=== PATIENT | male | born 1945 | race Caucasian/White ===

== ENCOUNTER 2016-11-02 14:02 | Emergency (ER) | payer OTHER, MEDICAID ==
[~2016-11-02] VITALS: Ht 162.6 cm; Wt 68.0 kg
[~2016-11-02 14:02] MED LIST: CATAPRES0.1 MG ORAL; CEPHALEXIN500 MG ORAL; DOXEPIN HCL25 MG ORAL; DOXYCYCLINE MO100 MG ORAL; IBUPROFEN800 MG ORAL; MECLIZINE HCL25 MG ORAL
[2016-11-02] MEDS ORDERED: NKM (14:14)
[2016-11-02] MEDS ORDERED: Meclizine 25mg tab ORAL PRN (14:45)
--- NOTE | 2016-11-02 14:55 | Emergency Room Report ---
History of Present Illness General Chief Complaint: Dizziness Source: Patient Present Illness HPI The patient presents with 3 days of dizziness. It's when he stands up. He feels a little also when sitting up. He has nausea associated with that but has not any vomiting. He denies any chest pain or palpitations. No headache. The patient associates this with recent surgery on his right foot. Is not taking any antibiotics or any other pain medication for that. He has been washing himself by lying down in a bath and water might have gotten into his ears. He moistens Qtips in his mouth before cleaning his ears. Denies any ringing in his ears. Denies any fevers or chills. Also there is no weakness in his body aside from chronic weakness in his right hand from a prior trauma. The patient says his equilibrium is off. There is no change in his vision. Ears no change in sensation. This never happened to him before (although there is a prior Rx for antivert). Not on blood thinners, oncologic treatment, headache. No prior strokes. Allergies: Coded Allergies: No Known Allergies (Unverified , 07/10/13) Patient History Past Medical History: see triage record Past Surgical History: other - R foot surgery and R forearm surgery/trauma Social History: Denies: alcohol use, drug use, smoking Social History Narrative lives at home with cats - here with friend Reviewed Nursing Documentation: PMH: Agreed, PSxH: Agreed Nursing Documentation-PMH Past Medical History: No History, Except For Review of Systems All Other Systems: negative except mentioned in HPI Physical Exam Vital Signs Date Time Temp Pulse Resp B/P Pulse Ox O2 Delivery O2 Flow Rate FiO2 11/02/16 14:08 98.1 67 16 145/77 99 Room Air Sp02 EP Interpretation: reviewed, normal General Appearance: well appearing, no apparent distress, GCS 15 Head: normocephalic Eyes: bilateral eye EOMI, bilateral eye PERRL, bilateral eye normal inspection ENT: moist mucus membranes - plates Neck: supple Respiratory: chest non-tender, lungs clear, normal breath sounds Cardiovascular #1: regular rate, rhythm Cardiovascular #2: 2+ radial (R) Gastrointestinal: normal inspection, normal bowel sounds, non tender, no mass, non-distended Musculoskeletal: digits/nails normal, gait/station normal, normal range of motion, other - atrophy R hand (ulnar nerve), foot appliance Neurologic: alert, oriented x3, professional development instructor III-XII nml as tested - possible minimal lateral nystagmus, motor strength/tone normal, DTRs symmetric, sensory intact, cerebellar normal, speech normal Psychiatric: mood/affect normal Skin: normal inspection, warm/dry Medical Decision Making Diagnostic Impression: Primary Impression: Vertigo ER Course Patient presents with dizziness and nausea for 3 days. It is mainly when he is standing up. Differential includes cerebellar infarct, dehydration, labyrinthitis, vertigo amongst others. Evaluation with EKG, chest x-ray, labs and also CT of head is undertaken. In addition the patient will be treated with Zofran and Antivert. Will also check his orthostatic vital signs. EKG and CXR unremarkable. Labs with normal H/H and WBC. Patient improved with treatment here. Able to sit, walk and stand without difficulty. Here with friend. Patient stable for outpatient observation and treatment. Laboratory Tests Test 11/02/16 14:52 White Blood Count 6.9 K/UL (4.8-10.8) Red Blood Count 4.72 M/UL (4.70-6.10) Hemoglobin 14.4 G/DL (14.2-18.0) Hematocrit 44.3 % (42.0-52.0) Mean Corpuscular Volume 94 FL (80-99) Mean Corpuscular Hemoglobin 30.5 PG (27.0-31.0) Mean Corpuscular Hemoglobin Concent 32.5 G/DL (32.0-36.0) Red Cell Distribution Width 12.5 % (11.6-14.8) Platelet Count 139 K/UL (150-450) L Mean Platelet Volume 10.0 FL (6.5-10.1) Neutrophils (%) (Auto) 71.9 % (45.0-75.0) Lymphocytes (%) (Auto) 19.2 % (20.0-45.0) L Monocytes (%) (Auto) 7.0 % (1.0-10.0) Eosinophils (%) (Auto) 0.5 % (0.0-3.0) Basophils (%) (Auto) 1.5 % (0.0-2.0) Prothrombin Time 10.2 SEC (9.30-11.50) Prothrombin Time INR 1.0 (0.9-1.1) PTT 26 SEC (23-33) Sodium Level 141 mEQ/L (135-145) Potassium Level 5.0 mEQ/L (3.4-4.9) H Chloride Level 100 mEQ/L (98-107) Carbon Dioxide Level 30 mEQ/L (20-30) Anion Gap 11 (5-15) Blood Urea Nitrogen 10 mg/dL (7-23) Creatinine 0.9 mg/dL (0.7-1.2) Estimate Glomerular Filtration Rate mL/min (>60) Glucose Level 107 mg/dL (74-106) H Calcium Level 9.9 mg/dL (8.6-10.2) Total Bilirubin 0.2 mg/dL (0.0-1.2) Aspartate Amino Transferase (AST) 42 U/L (5-40) H Alanine Aminotransferase (ALT) 49 U/L (3-41) H Alkaline Phosphatase 75 U/L (40-129) Total Creatine Kinase 525 U/L (38-174) H Troponin I < 0.30 ng/mL (<=0.30) Total Protein 7.6 g/dL (6.6-8.7) Albumin 4.3 g/dL (3.5-5.2) Globulin 3.3 g/dL Albumin/Globulin Ratio 1.3 (1.0-2.7) EKG Diagnostic Results Rate: normal Rhythm: NSR ST Segments: no acute changes Rhythm Strip Diag. Results EP Interpretation: yes Rhythm: NSR, no PVC's, no ectopy Chest X-Ray Diagnostic Results EP Interpretation: Yes Findings: no consolidation, no effusion, no pneumothorax, no acute cardiopulmonary disease Number of Views: 1 CT/MRI/US Diagnostic Results CT/MRI/US Diagnostic Results : Imaging Test Ordered: head Impression atrophy, no bleed, infract, masses. Nl bones. Last Vital Signs Date Time Temp Pulse Resp B/P Pulse Ox O2 Delivery O2 Flow Rate FiO2 11/02/16 17:11 98.0 78 15 147/84 100 Room Air 83 Status: improved Disposition: HOME, SELF-CARE Condition: Improved Scripts Ondansetron Odt* (ZOFRAN ODT*) 4 Mg Tab.rapdis 4 MG ORAL Q6H Y for Nausea & Vomiting, #6 TAB 1 Refill Prov: Jose Hamilton M.D. 11/02/16 Meclizine Hcl* (MECLIZINE*) 25 Mg Tablet 25 MG ORAL THREE TIMES A DAY Y for for dizziness, #10 TAB 1 Refill Prov: Jose Hamilton M.D. 11/02/16 Jose Hamilton M.D. Nov 02, 2016 14:55
[2016-11-02 14:59] VITALS: BP 174/83
[2016-11-02 15:20] LABS: BASOPHILS % (AUTO) 1.5 % (0.0-2.0); EOSINOPHILS % (AUTO) 0.5 % (0.0-3.0); LYMPHOCYTES % (AUTO) 19.2 % (20.0-45.0); MEAN CORPUSCULAR HEMOGLOBIN 30.5 PG (27.0-31.0); MEAN CORPUSCULAR HGB CONC 32.5 G/DL (32.0-36.0); MEAN CORPUSCULAR VOLUME 94 FL (80-99); NEUTROPHILS % (AUTO) 71.9 % (45.0-75.0); PLATELET COUNT 139 K/UL (150-450); RED BLOOD COUNT 4.72 M/UL (4.70-6.10); RED CELL DISTRIBUTION WIDTH 12.5 % (11.6-14.8); WHITE BLOOD COUNT 6.9 K/UL (4.8-10.8)
[2016-11-02 15:32] LABS: TROPONIN I < 0.30 ng/mL (<=0.30)
[2016-11-02 15:34] LABS: PROTHROMBIN TIME 10.2 SEC (9.30-11.50)
[2016-11-02 15:36] LABS: ALANINE AMINOTRANSFERASE 49 U/L (3-41); ALBUMIN/GLOBULIN RATIO 1.3 (1.0-2.7); ANION GAP 11 (5-15); ASPARTATE AMINO TRANSFERASE 42 U/L (5-40); CALCIUM 9.9 mg/dL (8.6-10.2); CARBON DIOXIDE 30 mEQ/L (20-30); CHLORIDE 100 mEQ/L (98-107); CREATININE 0.9 mg/dL (0.7-1.2); HEMOLYSIS 6; SODIUM 141 mEQ/L (135-145); TOTAL PROTEIN 7.6 g/dL (6.6-8.7)
[2016-11-02 16:24] VITALS: BP_SYST 136; BP_SYST 148; BP_SYST 157; BP_DIAS 110; BP_DIAS 112; BP_DIAS 139
[2016-11-02] MEDS ORDERED: ZOFRAN ODT4 MG ORAL (17:00)
[2016-11-02] MEDS ORDERED: MECLIZINE HCL25 MG ORAL (17:00)
[2016-11-02 17:01] VITALS: BP 147/84
[2016-11-02 17:11] VITALS: BP 147/84
--- NOTE | 2016-11-03 08:57 | Diagnostic Imaging Report ---
Clinical history: Chest pain Technique: Portable AP chest radiograph was obtained. Comparison: None Findings: Lung volumes are low. No focal consolidation is identified. There is no pneumonia or pulmonary edema. There is no pleural effusion or pneumothorax. The cardiac and mediastinal silhouettes are normal in appearance. The bony thorax is unremarkable. Impression: No acute cardiopulmonary process.
--- NOTE | 2016-11-03 09:13 | Diagnostic Imaging Report ---
CT Brain without Intravenous Contrast INDICATION: Dizziness. COMPARISON: None TECHNIQUE: Serial axial images were obtained from the the skull base through the vertex without intravenous contrast. Coronal reformats were obtained. Dose Estimate: Total DLP 1361 mGycm CTDIvol 70 mGy FINDINGS: Mild scattered periventricular and subcortical white matter hypodensities are nonspecific but may reflect the sequela of chronic microangiopathy. There is no evidence of acute intracranial hemorrhage or territorial infarct. The cortical sulci, ventricles and extra-axial CSF spaces appear prominent but likely normal for patient's age. There is no space occupying lesion, mass effect or midline shift. The visualized paranasal sinuses and mastoid air cells are clear. The osseous structures are unremarkable. IMPRESSION: 1. No acute intracranial hemorrhage, midline shift or mass effect. 2. Mild scattered white matter hypodensities are nonspecific but may reflect the sequela of chronic microangiopathy.
--- NOTE | 2016-11-04 08:34 | Cardiology Report ---
APPROVED REPORT EKG Measurement Heart [id number] Normal sinus rhythm Normal ECG
== END 2016-11-02 17:12 | disposition home or self-care (01) ==
LOC: EMR 14:58
DX: R42 Dizziness and giddiness (principal); R11.0 Nausea
CPT/HCPCS: 36415; 70450; 71010; 80053; 82550; 82962; 84484; 85025; 85610; 85730; 93005; 99284

== ENCOUNTER 2018-07-31 14:24 | Emergency (ER) | payer OTHER, MEDICAID ==
[~2018-07-31] VITALS: Ht 157.5 cm; Wt 68.9 kg
[~2018-07-31 14:24] MED LIST changes: +NKM; +ZOFRAN ODT4 MG ORAL
[2018-07-31 14:30] VITALS: BP 154/94
[2018-07-31] MEDS ORDERED: MECLIZINE HCL25 MG ORAL (15:11)
[2018-07-31] MEDS ORDERED: Meclizine 25mg tab ORAL ONE (15:15)
[2018-07-31 15:21] VITALS: BP 142/75
--- NOTE | 2018-07-31 16:36 | Emergency Room Report ---
History of Present Illness General Chief Complaint: Dizziness Source: Patient, Medical Record Present Illness HPI 73-year-old male presents ED for evaluation. Patient states he's been experiencing dizziness. Described as room spinning sensation. Worse with sudden position change. Denies any headache. Denies any nausea or vomiting. Denies any blurry vision. States that he's had these symptoms for the last month now. States he's had this in the past and was diagnosed with vertigo. States he was prescribed meclizine and states that helps with his symptoms. Denies any slurred speech or facial droop. Denies any arm or leg weakness. Denies any incontinence. No other aggravating relieving factors. Denies any other associated symptoms Allergies: Coded Allergies: No Known Allergies (Unverified , 07/31/18) Patient History Past Medical History: HTN Past Surgical History: none Pertinent Family History: none Social History: Denies: smoking, alcohol use, drug use Immunizations: UTD Reviewed Nursing Documentation: PMH: Agreed; PSxH: Agreed Nursing Documentation-PMH Past Medical History: No History, Except For Hx Hypertension: Yes Review of Systems All Other Systems: negative except mentioned in HPI Physical Exam Vital Signs Date Time Temp Pulse Resp B/P (MAP) Pulse Ox O2 Delivery O2 Flow Rate FiO2 07/31/18 14:30 98.6 81 15 154/94 96 Room Air Sp02 EP Interpretation: reviewed, normal General Appearance: no apparent distress, alert, GCS 15, non-toxic Head: normocephalic, atraumatic Eyes: bilateral eye normal inspection, bilateral eye PERRL ENT: hearing grossly normal, normal pharynx, no angioedema, normal voice Neck: full range of motion, supple/symm/no masses Respiratory: chest non-tender, lungs clear, normal breath sounds, speaking full sentences Cardiovascular #1: regular rate, rhythm, no edema Cardiovascular #2: 2+ carotid (R), 2+ carotid (L), 2+ radial (R), 2+ radial (L) , 2+ dorsalis pedis (R), 2+ dorsalis pedis (L) Gastrointestinal: normal bowel sounds, non tender, soft, non-distended, no guarding, no rebound Rectal: deferred Genitourinary: normal inspection, no CVA tenderness Musculoskeletal: back normal, gait/station normal, normal range of motion, non- tender Neurologic: alert, oriented x3, responsive, loan interviewer mortgage III-XII nml as tested, motor strength/tone normal, sensory intact, cerebellar normal, normal gait, speech normal Psychiatric: judgement/insight normal, memory normal, mood/affect normal, no suicidal/homicidal ideation Reflexes: 3+ bicep (R), 3+ bicep (L), 3+ tricep (R), 3+ tricep (L), 3+ knee (R) , 3+ knee (L) Skin: normal color, no rash, warm/dry, well hydrated Lymphatic: no adenopathy Medical Decision Making Diagnostic Impression: Primary Impression: Vertigo ER Course Hospital Course 73-year-old male presents ED complaining of dizziness x1 month Differential diagnoses include: NC/unstable angina, SVT, A. fib, V. tach, CVA/ TIA, intracranial mass, vertigo Clinical course Patient placed on stretcher. on boiling tub operator. After initial history, physical exam reveals an elderly male in no acute distress. Cranial nerves II through XII intact. Extraocular movements intact. No sensory deficits. No slurred speech or facial droop. 5 out of 5 motor in all extremities. No sensory deficits. No nuchal rigidity. Vital stable. I reviewed EMR patient had been here previously for similar symptoms. Patient workup at that time which was unremarkable, including labs EKG and CT I discussed findings with the patient. Clinical presentation consistent with vertigo. I offered to check labs and provide imaging the patient declined stating that he knows that this is his vertigo and he just needs his medication Patient given meclizine here. States he is feeling better. ambulating with steady gait. Safe for discharge close outpatient follow-up I. I feel this is a highly complex case requiring extensive working including EKG/Rhythm strip, Xray/CT/US, Blood/urine lab work, repeat exams while in ED, and administration of strong opiates/narcotics for pain control, admission to hospital or close patient follow up. Diagnosis - vertigo stable and discharged to home with prescription for meclizine. Followup with PMD. Return to ED if symptoms recur or worsen Last Vital Signs Date Time Temp Pulse Resp B/P (MAP) Pulse Ox O2 Delivery O2 Flow Rate FiO2 07/31/18 15:21 98.0 70 17 142/75 98 Room Air 81 Status: improved Disposition: HOME, SELF-CARE Condition: Stable Scripts Meclizine Hcl* (MECLIZINE*) 25 Mg Tablet 25 MG ORAL THREE TIMES A DAY, #30 TAB 0 Refills Prov: Harpreet Cannon MD 07/31/18 Referrals: NON PHYSICIAN (PCP) Patient Instructions: Vertigo Harpreet Cannon MD Jul 31, 2018 16:35
== END 2018-07-31 15:26 | disposition home or self-care (01) ==
LOC: EMR 15:10
DX: R42 Dizziness and giddiness (principal); I10 Essential (primary) hypertension
CPT/HCPCS: 99282

== ENCOUNTER 2019-06-01 07:22 | Emergency (ER) | payer OTHER, MEDICAID ==
[~2019-06-01] VITALS: Ht 162.6 cm; Wt 59.9 kg
[2019-06-01 07:35] VITALS: BP 163/82
--- NOTE | 2019-06-01 07:35 | NUR ---
ED Nurse Note: PT WALKED IN TO ER TODAY FROM HOME. AOX4. PT C/O DIZZINESS UPON AWAKENING THIS MORNING AROUND 0430 ALONG WITH NAUSEA AND ONE EPISODE OF VOMITING. GAIT STEADY IN ER. PT STATES SYMPTOMS ARE STILL PRESENT BUT NOT BAD IT WAS AT HOME. PT STATES HE HAS HAD SIMILAR EPISODES IN THE PAST.
[2019-06-01] MEDS ORDERED: Meclizine 25mg tab ORAL ONE (07:45)
--- NOTE | 2019-06-01 07:47 | Emergency Room Report ---
History of Present Illness General Chief Complaint: Dizziness Source: Patient Present Illness HPI 73-year-old male past medical history significant for vertigo presents with acute nausea and vomiting that started today after he woke up, he changed positions, he felt the room spinning and he felt nauseous lasting minutes it was violent for him, aggravated by position alleviated by staying still, severity was severe lasting minutes, no fever no chills no chest pain no shortness of breath no abdominal pain, patient states it is similar to his previous vertigo-like symptoms. He denies any weakness Allergies: Coded Allergies: No Known Allergies (Unverified , 07/31/18) Patient History Past Medical History: see triage record Reviewed Nursing Documentation: PMH: Agreed; PSxH: Agreed Nursing Documentation-PMH Past Medical History: No History, Except For Hx Hypertension: Yes Review of Systems All Other Systems: negative except mentioned in HPI Physical Exam Vital Signs Date Time Temp Pulse Resp B/P (MAP) Pulse Ox O2 Delivery O2 Flow Rate FiO2 06/01/19 07:30 55 16 153/76 (101) 97 Room Air Sp02 EP Interpretation: reviewed, normal General Appearance: well appearing, no apparent distress, alert Head: normocephalic, atraumatic Eyes: bilateral eye PERRL, bilateral eye EOMI ENT: uvula midline, moist mucus membranes Neck: supple, thyroid normal, supple/symm/no masses Respiratory: lungs clear, no respiratory distress, no retraction, no accessory muscle use Cardiovascular #1: normal peripheral pulses, regular rate, rhythm, no edema, no gallop, no murmur Gastrointestinal: non tender, soft, no guarding, no rebound Musculoskeletal: normal inspection Neurologic: alert, oriented x3, heating unit mechanic III-XII nml as tested, motor strength/tone normal, normal gait, other - Fatigable nystagmus to the right Psychiatric: mood/affect normal Skin: no rash, warm/dry Medical Decision Making Diagnostic Impression: Primary Impression: Vertigo ER Course 73-year-old male presents with acute episode of vertigo most likely his current vertigo, patient with normal neuro exam with fatigable nystagmus, [place] Hall[place] positive Patient given Benadryl with resolution of his vertigo, patient is tolerating p.o., patient feels better Disposition home with return precautions follow-up with neurology CT/MRI/US Diagnostic Results CT/MRI/US Diagnostic Results : Impression Procedure: CT Head no Contrast Indications: Headache, dizziness, nausea Technique: Spiral acquisitions obtained through the brain. Angled axial and coronal 5 x 5 mm slices were reconstructed. Total dose length product 1304 mGycm. CTDI vol(s) 6 mGy. Dose reduction achieved using automated exposure control Comparison: 11/02/2016 Findings: Lucency within the left posterior parietal deep white matter is again demonstrated, consistent with old white matter infarct. There is some scalp soft tissue swelling or contusion in the high right parietal region. There is periventricular deep white matter low-attenuation, consistent with chronic microvascular ischemic change. There is frontal cortical volume loss which has progressed since prior exam. Ventricles are also mildly prominent. No acute intracranial hemorrhage or edema. No mass effect nor midline shift. Normal malhotra- white differentiation. Visualized orbits and sinuses are unremarkable. The mastoids are clear. 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 Correlate with clinical findings The CT scanner at [facility] is accredited by the [employer] and the scans are performed using protocols designed to limit radiation exposure to as low as reasonably achievable to attain images of sufficient resolution adequate for diagnostic evaluation. Dictated By: Jesus Mariano MD Electronically Signed By: Jesus Mariano MD Signed Date/Time 06/01/19 0901 CC: Wilberto Deng MD Last Vital Signs Date Time Temp Pulse Resp B/P (MAP) Pulse Ox O2 Delivery O2 Flow Rate FiO2 06/01/19 07:30 55 16 153/76 (101) 97 Room Air Disposition: HOME, SELF-CARE Condition: Stable Scripts Meclizine Hcl* (MECLIZINE*) 25 Mg Tablet 25 MG ORAL THREE TIMES A DAY PRN for for dizziness, #30 TAB Prov: Wilberto Deng MD 06/01/19 Referrals: [facility] Evin Basilio [facility]. [facility] Patient Instructions: Vertigo Additional Instructions: The patient was provided with discharge instructions, notified to follow-up with a primary care doctor and or specialist in the next 24-48 hours, and to return to the ED if they have worsening of their symptoms. Please note that this report is being documented using DRAGON technology. This can lead to erroneous entry secondary to incorrect interpretation by the dictating instrument. FOLLOW-UP WITH NEUROLOGY PLEASE LOOK-UP Wilberto Hines MD Jun 01, 2019 07:46
[2019-06-01] MEDS ORDERED: MECLIZINE HCL25 MG ORAL ×3 (07:57→10:11)
[2019-06-01] MEDS ORDERED: Metoclopramide 10mg/2ml Inj IVP ONE (08:00)
[2019-06-01] MEDS ORDERED: DiphenhydrAMINE 50mg/ml Inj IVP ONE (08:00)
[2019-06-01 08:08] VITALS: BP 113/95
--- NOTE | 2019-06-01 08:14 | NUR ---
ED Nurse Note: PT TO CT VIA WHEELCHAIR.
--- NOTE | 2019-06-01 08:28 | NUR ---
ED Nurse Note: PT BACK FROM CT VIA WHEELCHAIR.
--- NOTE | 2019-06-01 09:06 | Diagnostic Imaging Report ---
Indications: Headache, dizziness, nausea Technique: Spiral acquisitions obtained through the brain. Angled axial and coronal 5 x 5 mm slices were reconstructed. Total dose length product 1304 mGycm. CTDI vol(s) 6 mGy. Dose reduction achieved using automated exposure control Comparison: 11/02/2016 Findings: Lucency within the left posterior parietal deep white matter is again demonstrated, consistent with old white matter infarct. There is some scalp soft tissue swelling or contusion in the high right parietal region. There is periventricular deep white matter low-attenuation, consistent with chronic microvascular ischemic change. There is frontal cortical volume loss which has progressed since prior exam. Ventricles are also mildly prominent. No acute intracranial hemorrhage or edema. No mass effect nor midline shift. Normal malhotra-white differentiation. Visualized orbits and sinuses are unremarkable. The mastoids are clear. 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 Correlate with clinical findings The CT scanner at [facility] is accredited by the [employer] and the scans are performed using protocols designed to limit radiation exposure to as low as reasonably achievable to attain images of sufficient resolution adequate for diagnostic evaluation.
--- NOTE | 2019-06-01 09:21 | NUR ---
ED Nurse Note: PT LAYING PEACEFULLY IN BED IN NAD. AOX4. VSS.
[2019-06-01 10:18] VITALS: BP 116/92
--- NOTE | 2019-06-01 10:18 | NUR ---
ED Nurse Note: PT LAYING PEACEFULLY IN BED IN NAD. AOX4. PRESCRIPTION AND DISCHARGE PAPERWORK EXPLAINED TO PT. PT VERBALIZES UNDERSTANDING AND ALL QUESTIONS ANSWERED. PRESCRIPTION AND DISCHARGE PAPERWORK GIVEN TO PT, IV AND ID WRISTBAND REMOVED. PT WALKED OUT OF ER WITH STEADY GAIT AND ALL BELONGINGS.
== END 2019-06-01 10:24 | disposition home or self-care (01) ==
LOC: EMR 08:25
DX: R42 Dizziness and giddiness (principal); R51 Headache; R11.2 Nausea with vomiting, unspecified; I10 Essential (primary) hypertension
CPT/HCPCS: 70450; 96361; 96374; 96375; 99284; J1200; J2765; S0028; J7030